=== PATIENT | female | born 1935 | race Caucasian/White ===

== ENCOUNTER 2017-03-27 13:34 | Inpatient (IN) | payer SELFPAY ==
[~2017-03-27] VITALS: Ht 160 cm; Wt 89.9 kg
[2017-03-27 14:44] LABS: BASOPHIL % 0.1 % (0-2); PLATELET COUNT 166 x10^3mcL (130-400); RED CELL DISTRIBUTION WIDTH 13.1 % (11.5-14.5)
[2017-03-27 14:53] LABS: CALCIUM 8.5 mg/dL (8.5-10.1); CARBON DIOXIDE 28.4 mmol/L (21-32); CHLORIDE SERUM 91 mmol/L (98-107); CREATININE SERUM 1.3 mg/dL (0.6-1.0); GLUCOSE SERUM 110 mg/dL (74-106); POTASSIUM SERUM 3.8 mmol/L (3.5-5.1); SODIUM SERUM 126 mmol/L (136-145)
[2017-03-27 15:04] LABS: ALKALINE PHOSPHATASE 354 U/L (46-116); ALT/SGPT 56 U/L (14-59); AST/SGOT 50 U/L (15-37); BILIRUBIN TOTAL 4.7 mg/dL (0.20-1.00); TOTAL PROTEIN, SERUM 6.4 g/dL (6.4-8.2)
[2017-03-27 15:10] LABS: ALBUMIN 2.5 g/dL (3.4-5.0)
[2017-03-27] MEDS ORDERED: FLA500 PO (15:45)
[2017-03-27] MEDS ORDERED: CIPRO500 MG PO (15:45)
[2017-03-27] MEDS ORDERED: BENAZEPRIL HYDR40 M1 PO (15:45)
[2017-03-27] MEDS ORDERED: NOR10 PO (15:46)
[2017-03-27] MEDS ORDERED: LASIX20 MG PO (15:46)
[2017-03-27 15:51] LABS: LIPASE 17724 IU/L (73-393)
[2017-03-27 16:17] VITALS: BP 110/38
[2017-03-27 17:18] LABS: MAGNESIUM 1.8 mg/dL (1.8-2.4); PHOSPHOROUS 2.6 mg/dL (2.5-4.9)
[2017-03-27 17:25] LABS: FREE T4 1.67 ng/dL (0.76-1.46); FREE THYROXINE INDEX 4.2 ug/dL (1.4-4.5); T3 TOTAL 0.57 ng/mL; T4(THYROXINE) 11.4 ug/dL (4.7-13.3)
[2017-03-27 17:39] LABS: CHOLESTEROL/HDL RATIO 7.1
[2017-03-27 18:35] VITALS: BP 122/50
[2017-03-27 19:59] LABS: UA SPECIFIC GRAVITY <=1.005 (1.005-1.035); microscopic required? YES; urine erythrocyte 1+ (NEGATIVE)
[2017-03-27 21:48] VITALS: BP 130/54
[2017-03-28 05:56] VITALS: BP 136/56
[2017-03-28 06:01] LABS: BASOPHIL % 0.1 % (0-2); PLATELET COUNT 167 x10^3mcL (130-400); RED CELL DISTRIBUTION WIDTH 13.5 % (11.5-14.5)
[2017-03-28 06:26] LABS: ALKALINE PHOSPHATASE 308 U/L (46-116); ALT/SGPT 44 U/L (14-59); AST/SGOT 41 U/L (15-37); BILIRUBIN DIRECT 3.79 mg/dL (0.0-0.2); BILIRUBIN TOTAL 4.4 mg/dL (0.20-1.00); CALCIUM 8.3 mg/dL (8.5-10.1); CARBON DIOXIDE 25.4 mmol/L (21-32); CHLORIDE SERUM 98 mmol/L (98-107); GLUCOSE SERUM 83 mg/dL (74-106); LIPASE 995 IU/L (73-393); MAGNESIUM 1.6 mg/dL (1.8-2.4); PHOSPHOROUS 2.7 mg/dL (2.5-4.9); POTASSIUM SERUM 3.9 mmol/L (3.5-5.1); SODIUM SERUM 132 mmol/L (136-145)
[2017-03-28 06:36] LABS: ALBUMIN 2.1 g/dL (3.4-5.0); TOTAL PROTEIN, SERUM 5.6 g/dL (6.4-8.2)
[2017-03-28 09:21] VITALS: BP 138/54
[2017-03-28 20:30] VITALS: BP 93/48
[2017-03-29 06:14] VITALS: BP 115/51
[2017-03-29 06:17] LABS: PLATELET COUNT 196 x10^3mcL (130-400); RED CELL DISTRIBUTION WIDTH 13.2 % (11.5-14.5)
[2017-03-29 06:31] LABS: CALCIUM 8.5 mg/dL (8.5-10.1); CARBON DIOXIDE 23.2 mmol/L (21-32); CHLORIDE SERUM 97 mmol/L (98-107); CREATININE SERUM 1.2 mg/dL (0.6-1.0); GLUCOSE SERUM 96 mg/dL (74-106); MAGNESIUM 2.3 mg/dL (1.8-2.4); PHOSPHOROUS 4.4 mg/dL (2.5-4.9); POTASSIUM SERUM 4.4 mmol/L (3.5-5.1); SODIUM SERUM 132 mmol/L (136-145)
[2017-03-29 06:45] LABS: BASOPHIL % 0 % (0-2)
[2017-03-29 09:38] VITALS: BP 107/56
[2017-03-29 14:22] VITALS: BP 119/59
[2017-03-29 19:03] VITALS: BP 114/47
[2017-03-29 21:31] VITALS: BP 110/47
[2017-03-30 05:29] VITALS: BP 114/48
[2017-03-30 06:24] LABS: BASOPHIL % 0.1 % (0-2); PLATELET COUNT 224 x10^3mcL (130-400); RED CELL DISTRIBUTION WIDTH 13.6 % (11.5-14.5)
[2017-03-30 06:34] LABS: ALKALINE PHOSPHATASE 236 U/L (46-116); ALT/SGPT 23 U/L (14-59); AST/SGOT 38 U/L (15-37); BILIRUBIN TOTAL 1.4 mg/dL (0.20-1.00); CALCIUM 8.1 mg/dL (8.5-10.1); CARBON DIOXIDE 26.2 mmol/L (21-32); CHLORIDE SERUM 96 mmol/L (98-107); CREATININE SERUM 1.4 mg/dL (0.6-1.0); GLUCOSE SERUM 112 mg/dL (74-106); PHOSPHOROUS 3.2 mg/dL (2.5-4.9); POTASSIUM SERUM 4.4 mmol/L (3.5-5.1); SODIUM SERUM 128 mmol/L (136-145)
[2017-03-30 06:36] LABS: TOTAL PROTEIN, SERUM 5.4 g/dL (6.4-8.2)
[2017-03-30 10:06] VITALS: BP 106/51
[2017-03-30 13:08] LABS: CALCIUM 7.4 mg/dL (8.5-10.1); CARBON DIOXIDE 27.3 mmol/L (21-32); CHLORIDE SERUM 97 mmol/L (98-107); CREATININE SERUM 1.4 mg/dL (0.6-1.0); GLUCOSE SERUM 126 mg/dL (74-106); POTASSIUM SERUM 4.2 mmol/L (3.5-5.1); SODIUM SERUM 130 mmol/L (136-145)
[2017-03-30] MEDS ORDERED: APAP/HYDROCODON1 T11 PO (13:26)
[2017-03-30] MEDS ORDERED: STOOL SOFTENER240 M2 PO (13:27)
[2017-03-30] MEDS ORDERED: PANTOPRAZOLE SO40 M1 PO (13:27)
[2017-03-30] MEDS ORDERED: FLORASTOR1 CAP PO (13:28)
[2017-03-30] MEDS ORDERED: AMOXICILLIN500 M1 PO (13:35)
[2017-03-30] MEDS ORDERED: BIAXIN FILMTAB500 MG PO (13:35)
[2017-03-30] MEDS ORDERED: SIMETHICONE80 MG CH (13:36)
[2017-03-30 13:59] VITALS: BP 106/51
== END 2017-03-30 15:45 | disposition home or self-care (01) | DRG 417 ==
LOC: ED 13:34 → DU 15:25
PROVIDERS: Emergency Medicine; Internal Medicine Gastroenterology; Surgery; ADMIT Family Medicine
PROC: 0FT44ZZ Resection of Gallbladder, Percutaneous Endoscopic Approach (ICD-10-PCS; principal; 2017-03-28 09:00)
PROC: 0FC98ZZ Extirpation of Matter from Common Bile Duct, Via Natural or Artificial Opening Endoscopic (ICD-10-PCS; 2017-03-28 09:00)
DX: K80.00 Calculus of gallbladder with acute cholecystitis without obstruction (principal); K85.10 Biliary acute pancreatitis without necrosis or infection; E43 Unspecified severe protein-calorie malnutrition; N17.0 Acute kidney failure with tubular necrosis; E87.1 Hypo-osmolality and hyponatremia; E66.9 Obesity, unspecified; I10 Essential (primary) hypertension; E87.8 Other disorders of electrolyte and fluid balance, not elsewhere classified; E78.5 Hyperlipidemia, unspecified; R31.9 Hematuria, unspecified; K57.90 Diverticulosis of intestine, part unspecified, without perforation or abscess without bleeding; Z53.29 Procedure and treatment not carried out because of patient's decision for other reasons; K26.7 Chronic duodenal ulcer without hemorrhage or perforation; Z79.899 Other long term (current) drug therapy; Z68.35 Body mass index [BMI] 35.0-35.9, adult
CPT/HCPCS: 43262; 83880; 84439; 97116-GP; C1769; C9113; J0690; J0694; J1170; J1644; J1885; J1956; J2405; J2543; J2704; J2710; J3010; J3475; J3490; J7030; J7040; J7050; J7120; Q0092; Q9967